=== PATIENT | female | born 1950 | race Caucasian/White ===

== ENCOUNTER → 2017-05-24 | Outpatient (CLI) | payer MEDICARE, OTHER ==
[~2017-05-24] MED LIST: ALLEGRA ALLERG180 MG PO; APAP500 PO; ATORVASTATIN CA40 MG PO; BACTRIM DS TAB1 EACH PO; CEPHALEXIN 500500 M3 PO; CIPRO500 MG PO; ELIQUIS5 MG PO; FLONASE 0.05%50 MCG NASAL; HYDROCODON-ACE1 EACH PO; K-DUR10 MEQ PO; LOPRESSOR25 PO; OMEGA-31000 M1 PO; OXYCODONE HCL 55 MG PO; PANTOPRAZOLE SO40 M1 PO; PATADAY2.5 ML OP; PERCOCET 5-3251 EACH PO; PROAIR HFA8.5 GM INH; REMERON15 MG PO; RESTASIS1 EACH OP; RESTASIS1 EACH OPHTHALMIC; RESTORIL15 MG PO; SINGULAIR 10 MG10 M1 PO; UNICOMPLEX M TA1 TA1 PO; VENTOLIN HFA 1818 GM INH; XARELTO20 MG PO; ZANTAC 150MG T150 MG; ZOFRAN ODT4 MG PO; ZOLOFT50 MG PO
== END ==
LOC: M.ULTRA 10:57
DX: N18.3 Chronic kidney disease, stage 3 (moderate) (principal); N13.39 Other hydronephrosis; N32.89 Other specified disorders of bladder; M79.89 Other specified soft tissue disorders; M79.605 Pain in left leg

== ENCOUNTER 2017-06-27 20:35 | Emergency (ER) | payer MEDICARE, OTHER ==
[~2017-06-27] VITALS: Ht 154.9 cm; Wt 93.4 kg
[~2017-06-27 20:35] MED LIST changes: -LOPRESSOR25 PO; -OXYCODONE HCL 55 MG PO; -REMERON15 MG PO; -RESTORIL15 MG PO; -XARELTO20 MG PO; -ZANTAC 150MG T150 MG; -ZOFRAN ODT4 MG PO
[2017-06-27] MEDS ORDERED: ZANTAC 150MG T150 MG (20:43)
[2017-06-27 20:57] LABS: ABSOLUTE EOSINOPHILS 0.2 thou/uL (0.0-0.7); ABSOLUTE LYMPHOCYTES 2.9 thou/uL (0.8-5.3); ABSOLUTE MONOCYTES 0.7 thou/uL (0.0-1.2); ABSOLUTE NEUTROPHILS 3.1 thou/uL (1.6-8.1); BASOPHILS 0.5 %; EOSINOPHILS 2.4 %; HEMATOCRIT 38.8 % (37.0-47.0); HEMOGLOBIN 13.3 gm/dL (12.0-15.0); LYMPHOCYTES 41.9 %; MCH 31.3 pg (26.0-34.0); MCHC 34.2 g/dL (28.0-37.0); MCV 91.6 fL (80.0-100.0); MONOCYTES 9.8 %; MPV 6.7 fl. (7.2-11.1); NUCLEATED RBCS 0 /100WBC; PLATELET COUNT* 254 thou/uL (150-400); POLYS 45.4 %; RBC 4.23 mil/uL (4.20-5.00); RDW-CV 12.8 % (10.5-14.5); WBC 6.9 thou/uL (4.0-11.0)
[2017-06-27 21:08] LABS: ANION GAP 12 mmol/L (7-16); BUN 9 mg/dL (7-18); CALCIUM 8.7 mg/dL (8.5-10.1); CHLORIDE 100 mmol/L (98-107); CO2 24 mmol/L (21-32); CREATININE 0.7 mg/dL (0.6-1.3); GLUCOSE 102 mg/dL (70-99); SODIUM 136 mmol/L (136-145)
[2017-06-27 21:17] LABS: ALBUMIN 3.6 g/dL (3.4-5.0); ALKALINE PHOSPHATASE 113 U/L (46-116); LIPASE 97 U/L (73-393); NT-PRO BRAIN NAT PEPTIDE 110 pg/mL (<300); SGOT 19 U/L (15-37); SGPT 31 U/L (30-65); TOTAL BILIRUBIN 0.2 mg/dL (<0.1-1.0); TOTAL PROTEIN 6.8 g/dL (6.4-8.2); TROPONIN-I LEVEL <0.06 ng/mL (<0.06)
[2017-06-27 22:43] LABS: URINE BILIRUBIN NEGATIVE (Negative); URINE BLOOD 1+ (Negative); URINE CLARITY CLEAR; URINE COLOR YELLOW; URINE GLUCOSE-RANDOM NEGATIVE (Negative); URINE KETONES NEGATIVE (Negative); URINE LEUKOCYTES-REFLEX TRACE (Negative); URINE NITRITE-REFLEX NEGATIVE (Negative); URINE PROTEIN NEGATIVE (Negative); URINE SPECIFIC GRAVITY <= 1.005 (1.005-1.030); URINE UROBILINOGEN 0.2 E.U./dl (0.2-1.0)
[2017-06-27 22:56] LABS: CASTS None Seen /LPF (None Seen); CRYSTALS None Seen /LPF (None Seen); MUCUS None Seen strn/LPF (None Seen); SQUAMOUS 0-3 Few /LPF (0-3); URINE RBC 0-2 Rare /HPF (0-2); URINE WBC-REFLEX 0-5 Rare /HPF (0-5)
[2017-06-27 22:57] LABS: BACTERIA-REFLEX None Seen /HPF (None Seen)
[2017-06-27] MEDS ORDERED: ZOFRAN ODT4 MG PO (23:57)
[2017-06-27] MEDS ORDERED: RESTORIL15 MG PO (23:57)
[2017-06-28 00:12] VITALS: BP 134/71
--- NOTE | 2017-06-28 17:47 | EKG ---
[place] [address] ELECTROCARDIOGRAM REPORT Name: LATOYA GUTIERRES [id number] Admission: 06/27/17 Attend Phys: Discharge: 06/28/17 Date of : 46 Report #: [id number] THIS REPORT FOR: //name// [facility] ED Test Date: 2017-06-27 Test Time: 20:40:42 Pat Name: LATOYA GUTIERRES Department: Room: Gender: F Foreclosure Specialist: ZUNILDA : 1950 Requested By: Sue Roberts Order Number: [id number] : Rigoberto Davis Measurements Intervals [place] Rate: 69 P: -59 [place]: 154 QRS: -37 QRSD: 93 T: 57 QT: 398 QTc: 427 Interpretive Statements atrially paced rhythm Left axis deviation Low voltage, precordial leads Compared to ECG 07/16/2016 12 atrial pacing persists Electronically Signed On 06-28-2017 17:46:58 CDT by Rigoberto Davis [email or web address] <ELECTRONICALLY SIGNED> By: Rigoberto Davis MD, [facility] 06/28/17 1746 39 39 Rigoberto Davis MD, FACC /EPI
== END 2017-06-28 00:13 | disposition home or self-care (01) ==
LOC: M.ERS 20:35
PROVIDERS: Emergency Medicine
DX: R07.89 Other chest pain (principal); F32.9 Major depressive disorder, single episode, unspecified; G47.00 Insomnia, unspecified; I48.91 Unspecified atrial fibrillation; J45.909 Unspecified asthma, uncomplicated; K21.9 Gastro-esophageal reflux disease without esophagitis; F41.9 Anxiety disorder, unspecified; Z88.5 Allergy status to narcotic agent; Z88.8 Allergy status to other drugs, medicaments and biological substances; Z91.041 Radiographic dye allergy status

== ENCOUNTER 2017-08-17 16:52 | Inpatient (IN) | payer MEDICARE ==
[~2017-08-17] VITALS: Ht 154.9 cm; Wt 98.9 kg
[~2017-08-17 16:52] MED LIST changes: +RESTORIL15 MG PO; +ZANTAC 150MG T150 MG; +ZOFRAN ODT4 MG PO
[2017-08-17 16:54] VITALS: BP 152/65
[2017-08-17 17:42] LABS: ABSOLUTE EOSINOPHILS 0.2 thou/uL (0.0-0.7); ABSOLUTE LYMPHOCYTES 2.9 thou/uL (0.8-5.3); ABSOLUTE MONOCYTES 0.6 thou/uL (0.0-1.2); ABSOLUTE NEUTROPHILS 2.3 thou/uL (1.6-8.1); BASOPHILS 0.7 %; EOSINOPHILS 3.7 %; HEMATOCRIT 38.6 % (37.0-47.0); MCH 31.3 pg (26.0-34.0); MCHC 33.7 g/dL (28.0-37.0); MCV 92.6 fL (80.0-100.0); MONOCYTES 9.6 %; MPV 6.7 fl. (7.2-11.1); NUCLEATED RBCS 0 /100WBC; PLATELET COUNT* 237 thou/uL (150-400); RBC 4.17 mil/uL (4.20-5.00); RDW-CV 12.9 % (10.5-14.5); WBC 5.9 thou/uL (4.0-11.0)
[2017-08-17 17:51] LABS: CALCIUM 8.4 mg/dL (8.5-10.1); CREATININE 0.7 mg/dL (0.6-1.3)
[2017-08-17 17:52] LABS: APTT 32.3 Seconds (25.0-31.3)
[2017-08-17 18:09] LABS: ALBUMIN 3.5 g/dL (3.4-5.0); CK-MB MASS 1.1 ng/mL (<0.5-3.6); MAGNESIUM 1.8 mg/dL (1.8-2.4); TOTAL BILIRUBIN 0.2 mg/dL (<0.1-1.0); TOTAL PROTEIN 6.8 g/dL (6.4-8.2); TROPONIN-I LEVEL 0.22 ng/mL (<0.06)
[2017-08-17 20:00] VITALS: BP 125/58; BP 154/69
[2017-08-17] MEDS ORDERED: XARELTO20 MG PO (23:36)
[2017-08-17] MEDS ORDERED: OXYCODONE HCL 55 MG PO (23:36)
[2017-08-17] MEDS ORDERED: REMERON15 MG PO (23:36)
[2017-08-18] VITALS (17 sets, daily range): BP systolic 110–188; BP diastolic 60–98
[2017-08-18 04:44] LABS: HEMOGLOBIN 12.7 gm/dL (12.0-15.0); MCH 31.2 pg (26.0-34.0); MCHC 34.3 g/dL (28.0-37.0); MPV 7.2 fl. (7.2-11.1); RBC 4.06 mil/uL (4.20-5.00); RDW-CV 12.9 % (10.5-14.5); WBC 5.4 thou/uL (4.0-11.0)
[2017-08-18 05:24] LABS: ALBUMIN 3.2 g/dL (3.4-5.0); CALCIUM 8.5 mg/dL (8.5-10.1); CREATININE 0.7 mg/dL (0.6-1.3); MAGNESIUM 1.9 mg/dL (1.8-2.4); POTASSIUM 3.9 mmol/L (3.5-5.1); TOTAL BILIRUBIN 0.2 mg/dL (<0.1-1.0); TOTAL PROTEIN 5.8 g/dL (6.4-8.2)
--- NOTE | 2017-08-18 08:05 | NUR ---
NEW ADMIT THIS SHIFT REFER TO ASSESSMENT WITHOUT S/SX OF ACUTE DISTRESS REPORTS CHRONIC BACK PAIN INTERVENTION EFFECTIVE FOR MANAGMENT OF SX MEDICATION LIST RECONCILED WITH PATIENT UPDATED T.Rasheed KIRBY DOCUMENTED REGARDING HOME REGIMEN SMALL PILL BOX SENT TO PHARMACY WITH BRENDEN JETER AFTER MIDNIGHT ORDERED REPORT GIVEN TO ONCOMING RN
--- NOTE | 2017-08-18 09:36 | EKG ---
[place] [address] ELECTROCARDIOGRAM REPORT Name: LATOYA GUTIERRES Room: [address] ADM IN .R.#: [id number] Admission: 08/17/17 Attend Phys: Leanne Bo MD Discharge: Date of : 46 Report #: [id number] THIS REPORT FOR: //name// [facility] ED Test Date: 2017-08-17 Test Time: 16:59:53 Pat Name: LATOYA GUTIERRES Department: Room: [address] Gender: F Title Curator: AJ : 1950 Requested By: Del Muhammad Order Number: [id number] Reading MD: Lamine Lindsey Measurements Intervals [place] Rate: 70 P: 105 [place]: 154 QRS: 86 QRSD: 112 T: -7 QT: 408 QTc: 441 Interpretive Statements Atrial pacing with first-degree AV block Low voltage, precordial leads Minimal ST depression, inferior leads Compared to ECG 06/27/2017 20:40:42 ST (T wave) deviation now present Left-axis deviation no longer present Electronically Signed On 08-18-2017 9:36:32 CDT by Lamine Lindsey [email or web address] <ELECTRONICALLY SIGNED> By: Lamine Lindsey MD, [facility] 08/18/17 0936 1659 1659 Lamine Lindsey MD, [facility] /EPI
--- NOTE | 2017-08-18 09:41 | EKG ---
[place] [address] ELECTROCARDIOGRAM REPORT Name: LATOYA GUTIERRES Room: [address] IN [facility]#: [id number] Admission: 08/17/17 Attend Phys: Leanne Bo MD Discharge: Date of : 46 Report #: [id number] THIS REPORT FOR: //name// [facility] Test Date: 2017-08-17 Test Time: 23:57:42 Pat Name: LATOYA GUTIERRES Department: Room: Gender: F Trailer Tank Truck Driver: : 1950 Requested By: Del Muhammad Order Number: [id number] MD: Lamine Lindsey Measurements Intervals [place] Rate: 64 P: -71 [place]: 285 QRS: -34 QRSD: 94 T: 45 QT: 430 QTc: 444 Interpretive Statements Atrial-paced complexes Prolonged MT interval Left axis deviation Low voltage, precordial leads Borderline T abnormalities, anterior leads Compared to ECG 06/27/2017 20:40:42 First degree AV block now present T-wave abnormality now present Ventricular-paced complex(es) or rhythm no longer present Electronically Signed On 08-18-2017 9:41:23 CDT by Lamine Lindsey [email or web address] <ELECTRONICALLY SIGNED> By: Lamine Lindsey MD, FACC 08/18/17 0941 2357 2357 Lamine Lindsey MD, FAC /EPI
--- NOTE | 2017-08-18 09:42 | EKG ---
[place] [address] ELECTROCARDIOGRAM REPORT Name: LATOYA GUTIERRES Room: [address] ADM IN .R.#: [id number] Admission: 08/17/17 Attend Phys: Leanne Bo MD Discharge: Date of : 46 Report #: [id number] THIS REPORT FOR: //name// [facility] Test Date: 2017-08-18 Test Time: 06:03:38 Pat Name: LATOYA GUTIERRES Department: Room: [address] Gender: F Philosophy And Religion Instructor: : 1950 Requested By: Del Muhammad Order Number: [id number] Reading MD: Lamine Lindsey Measurements Intervals [place] Rate: 65 P: [place]: 175 QRS: -18 QRSD: 94 T: 40 QT: 426 QTc: 443 Interpretive Statements Atrial-paced complexes Borderline left axis deviation Low voltage, throughout Borderline T abnormalities, anterior leads Compared to ECG 06/27/2017 20:40:42 No significant changes noted Electronically Signed On 08-18-2017 9:42:06 CDT by Lamine Lindsey [email or web address] <ELECTRONICALLY SIGNED> By: Lamine Lindsey MD, [facility] 08/18/17 0942 2 2 Lamine Lindsey MD, [facility] /EPI
--- NOTE | 2017-08-18 11:08 | NUR ---
PT OFF UNIT TO CATH LAD.
--- NOTE | 2017-08-18 12:09 | CON ---
[address] [address] CONSULTATION Name: LATOYA GUTIERRES Room: [address] IN .R.#: [id number] Admission: 08/17/17 Attend Phys: Leanne Bo MD Discharge: Date of : 46 Report #: [id number] THIS REPORT FOR: //name// CC: Dr. Darlene Michael MD CARDIOLOGY CONSULTATION INDICATION: Hvr-VK-xutgktlqn myocardial infarction. HISTORY OF PRESENT ILLNESS: The patient is a 66-year-old white female who reports cardiac catheterization in 2003, at which point, no intervention was undertaken. Risk factors include dyslipidemia, hypertension and family history of coronary artery disease. She presented to the hospital yesterday with complaints of palpitations and numbness and tingling in bilateral hands and fingers. She was without complaints of specific chest pain, although she has noted shoulder pain for the last couple of weeks that she describes as more musculoskeletal. She attributed her symptoms to taking some potassium iodide for allergies. Thus far, on telemetry monitoring, we have not seen significant dysrhythmia. Her EKG shows a sinus rhythm, without significant ST or T-wave abnormality. Her troponin was 0.22 on 3 separate occasions. PAST MEDICAL HISTORY: 1. Paroxysmal atrial fibrillation. 2. Status post dual-chamber pacemaker placement for presumed sick sinus syndrome. 3. Hyperlipidemia. 4. GERD. 5. Asthma. PAST SURGICAL HISTORY: Tonsillectomy and adenoidectomy, 1954; oral surgery, 1963; D and C, 1977 and 2011; colonoscopy, 1998, 2015 and 2016; bunionectomy, 2005; tendon release, 2010; knee replacement in 2007; multiple EGDs and cardiac catheterization in 2003. FAMILY HISTORY: The patient's mother, father and sisters have had heart disease. SOCIAL HISTORY: The patient is . She is retired. She drinks 2-3 ounces of alcohol weekly. She does not smoke. ALLERGIES: MULTIPLE INCLUDING INTOLERANCES TO CIPRO, HYDROCODONE, DIAMOX, YELLOW DYE, BLUE DYE, CLARITIN AND ZYRTEC. REVIEW OF SYSTEMS: A 14-point review of systems [place] [address] CONSULTATION Name: LATOYA GUTIERRES Room: [address]#: [id number] Admission: 08/17/17 Attend Phys: Leanne Bo MD Discharge: Date of : 46 Report #: [id number] productive of clear sputum, palpitations, dyspnea, orthopnea, syncope and edema. The patient reports ulcers in 1991. The patient has seasonal and medical allergies. The patient has arthritis. She reports a lens implant for vision. She has decreased hearing and wears dentures. Otherwise, 14-point review of systems was unremarkable. PHYSICAL EXAMINATION: VITAL SIGNS: Stable. Blood pressure 151/77, pulse 59 and regular presently. GENERAL: This is a moderately obese, pleasant white female in no distress. Mood and affect appropriate. HEENT: Extraocular muscles intact. Mucous membranes are moist. NECK: Examination of the neck shows no jugular venous distention. I do not appreciate any carotid bruits. CHEST: Examination of the chest reveals clear lung hassan, without wheezes or rales. CARDIAC EXAMINATION: Reveals a regular rhythm with normal S1 and S2. I do not appreciate gallop or murmur. ABDOMEN: Examination of the abdomen reveals normal bowel sounds. The abdomen is soft and nontender. EXTREMITIES: Examination of the extremities shows no edema. Peripheral pulses are 2+ and easily palpable. SKIN: Warm and dry. LABORATORY DATA: A 12-lead EKG shows an atrially paced rhythm with first-degree AV block. There is nonspecific T-wave flattening. There is low voltage. Labs are reviewed. Electrolytes are within normal limits. BUN 12, creatinine 0.7 and serum glucose 88. LFTs within normal limits. Troponin 0.22 on 3 separate occasions. CBC unremarkable. Chest x-ray shows no acute cardiopulmonary abnormality. The patient has severe dextrocurvature of the thoracic spine. HOME MEDICATIONS: Tylenol q. 4 hours p.r.n., albuterol 1-2 puffs q. 4 hours p.r.n., atorvastatin 40 mg daily, cyclosporine eyedrops b.i.d., Kady 180 mg daily, fluticasone nasal spray daily, Remeron 50 mg at bedtime, Singulair 10 mg daily, Pataday eyedrops 2.5 mL daily, fish oil 1000 mg 2 tablets daily, Zofran 1 tablet q. 6 hours p.r.n., oxycodone IR 5 mg q. 6 hours p.r.n., Protonix 40 mg daily, Zantac 150 mg daily, Xarelto 20 mg at bedtime and sertraline 100 mg daily. IMPRESSION AND RECOMMENDATIONS: 1. Yxv-BK-kogzhbtlh myocardial infarction. We will proceed with left heart catheterization and possible intervention as deemed necessary. 2. Paroxysmal atrial fibrillation. The patient is presently on Xarelto. If she undergoes intervention, may hold the next dose of Xarelto. We will [facility] [address] [place] [address] CONSULTATION Name: LATOYA GUTIERRES Room: [facility] IN [facility]#: [id number] Admission: 08/17/17 Attend Phys: Leanne Bo MD Discharge: Date of : 46 Report #: [id number] otherwise continue indefinitely. Rate appears well controlled as she is atrially paced. 3. Status post dual-chamber pacemaker for probable sick sinus syndrome, appears to be functioning normally. 4. The patient reports a remote history of hypertension. Blood pressure adequately controlled presently. 5. Hyperlipidemia. Continue atorvastatin at current dose. 6. Palpitations. No indication of dysrhythmia on tele monitoring at this point in time. We will follow. <ELECTRONICALLY SIGNED> By: Lamine Lindsey MD, FACC 08/18/17 1209 1033 1114Micmaurice Lindsey MD, FACC /nt
--- NOTE | 2017-08-18 12:24 | NUR ---
PT RETURN FROM CHOIR LEADER, RIGHT GROIN CDI WITH NO HEMATOMA, PEDAL PULSES ARE PALPABLE. WILL CONTINUE TO ASSESS.
--- NOTE | 2017-08-18 18:54 | NUR ---
PT WITH REPORTED NEGATIVE CATH THIS SHIFT. PT GROIN REMAINS CDI WITH NO HEMATOMA. PT WAS ABLE TO SIT UP IN CHAIR FOR DINNER WHEN OFF BED REST. WILL CONTINUE TO ASSESS.
--- NOTE | 2017-08-18 19:25 | NUR ---
BEDISDE REPORT COMPLETED WITH VINH BASHIR. ASSESSED RIGHT FROIN WITH NIGHT KRYSTEN JUSTICE NO HEMATOMA NOTED AND DRESSING CDI.
[2017-08-19] VITALS: BP 140/78
[2017-08-19 04:00] VITALS: BP 120/57
[2017-08-19 04:54] LABS: HEMOGLOBIN 13.4 gm/dL (12.0-15.0); MCH 30.8 pg (26.0-34.0); MCHC 33.4 g/dL (28.0-37.0); MCV 92.3 fL (80.0-100.0); MPV 7.3 fl. (7.2-11.1); RBC 4.33 mil/uL (4.20-5.00); RDW-CV 13.4 % (10.5-14.5); WBC 4.9 thou/uL (4.0-11.0)
[2017-08-19 05:09] LABS: CALCIUM 9.1 mg/dL (8.5-10.1); CREATININE 0.6 mg/dL (0.6-1.3); POTASSIUM 3.7 mmol/L (3.5-5.1); TROPONIN-I LEVEL 0.23 ng/mL (<0.06)
--- NOTE | 2017-08-19 05:26 | NUR ---
ASSUMED CARE OF PT AT 1900, PT ALERT AND ORIENTED X4. VS AND ASSESSMENT STABLE. PT RUNNING NSR ON THE MONITOR. POST CATH SITE CHECKS BENIGN. PT DENIED ANY COMPLAINTS AND SLEPT THROUGH THE NIGHT. WILL CONTINUE PLAN OF CARE.
[2017-08-19 08:37] VITALS: BP 141/82
--- NOTE | 2017-08-19 08:40 | NUR ---
PT RESTING IN BED, APPEARS ALERT O X 4, DENIES CHEST PAIN, SOB, PAIN OR DISCOMFORT, R GROIN CATH SITE APPEARS SOFT AND INTACT, WITHOUT EVIDENCE OF BLEEDING, PT UP TO BATHROOM, APPEARS STEADY
--- NOTE | 2017-08-19 09:06 | CARD ---
[address] [address] CARDIAC CATH REPORT Name: SHARIF GUTIERRESChin De La Rosa Room: [facility] IN .R.#: [id number] Admission: 08/17/17 Attend Phys: Leanne Bo MD Discharge: Date of : 46 Report #: [id number] THIS REPORT FOR: //name// APPROVED REPORT Study performed: 08/18/2017 10:46:02 Patient Details Patient Status: In-Patient Room #: 208 The patient is a 66 year-old female Event Personnel Lamine Lindsey Sales And Marketing Assistant, Apple Moore, Lori Gong Evinger, Makenzie RN RN, Kathrine Peterson RN set designer Performed Art Access - R femoral artery* Left Heart Cath w/LT VGram [id number] LHCLV Procedure Narrative The patient was brought urgently to the Cardiac Catheterization Laboratory and was prepped and draped in a sterile manner. The right femoral was infiltrated with 2% Lidocaine subcutaneous anesthesia. A [place] 6 FR sheath was inserted into the right femoral artery. Coronary angiography was performed using coronary diagnostic catheters. The right coronary system was accessed and visualized with a Diagnostic catheter. The left coronary system was accessed and visualized with a Diagnostic catheter. The left ventricle was accessed and visualized with a Diagnostic catheter. Left ventricular/Aortic Valve gradient assessed via catheter pullback. The patient tolerated the procedure well and there were no complications associated with the procedure. There was no hematoma. Intraoperative Conscious Sedation Sedation start time: 1119 Case end Time: 1139 Fentanyl --25 mcg Versed --1 mg Fluoro Time: 3.0 minutes Dose: 1132 mGy Contrast Type and Amount: Visipaque 110 ml Coronary Angiography The patient's coronary [place] [address] CARDIAC CATH REPORT Name: LATOYA GUTIERRES Room: [address] IN [facility]#: [id number] Admission: 08/17/17 Attend Phys: Leanne Bo MD Discharge: Date of : 46 Report #: [id number] Diagnostic Cath Left Main Normal. LAD Normal in its proximal mid and distal portions. Diagonal 1 Normal. Diagonal 2 Normal. Circumflex Normal in its proximal mid and distal portions. OM1 Normal margin branch. Right Coronary 10% plaque proximally. The mid and distal portions are normal. R PDA Normal. RPLV Normal. Ramus Normal. Hemodynamics The aortic pressure is 139/69 mmHg with a mean of 81 mmHg. The left ventricular pressure is 139/8 mmHg with a mean of mmHg. The left ventricular end diastolic pressure is 19 mmHg. There was no gradient across the aortic valve upon pullback. Conclusion 1. Minimal atherosclerotic coronary artery disease with 10% plaquing in the right coronary artery. 2. Normal left ventricular systolic function. 3. Normal left ventricular end-diastolic pressure. Recommendations 1. Continue aggressive risk factor modification and medical management. <ELECTRONICALLY SIGNED> By: Lamine Lindsey MD, FACC 08/19/17905 5 5Michaereji Lindsey MD, FACC /INF
--- NOTE | 2017-08-19 09:49 | NUR ---
PT DID NOT TAKE AM XARALTO, STATES TAKES DAILY AT 5 PM AT HOME, REC DOSE AT 1700 YESTERDAY, PLAN ON D/C THIS AM, WILL TAKE WHEN GETS HOME
[2017-08-19 12:00] VITALS: BP 134/79
[2017-08-19 12:50] VITALS: BP 141/82
[2017-08-19] MEDS ORDERED: LOPRESSOR25 PO (13:14)
[2017-08-19 14:03] VITALS: BP 141/82
== END 2017-08-19 13:58 | disposition home or self-care (01) | DRG 281 ==
LOC: M.ERS 16:52 → M.TBA-ER 18:28 → M.2W 18:28
PROVIDERS: Family Medicine; ADMIT Internal Medicine
PROC: 4A023N7 Measurement of Cardiac Sampling and Pressure, Left Heart, Percutaneous Approach (ICD-10-PCS; principal; 2017-08-19)
PROC: B2111ZZ Fluoroscopy of Multiple Coronary Arteries using Low Osmolar Contrast (ICD-10-PCS; principal; 2017-08-19)
PROC: B2151ZZ Fluoroscopy of Left Heart using Low Osmolar Contrast (ICD-10-PCS; principal; 2017-08-19)
DX: I21.4 Non-ST elevation (NSTEMI) myocardial infarction (principal); I50.32 Chronic diastolic (congestive) heart failure; Z68.41 Body mass index [BMI] 40.0-44.9, adult; I48.0 Paroxysmal atrial fibrillation; E66.01 Morbid (severe) obesity due to excess calories; F41.9 Anxiety disorder, unspecified; E78.5 Hyperlipidemia, unspecified; I10 Essential (primary) hypertension; J45.909 Unspecified asthma, uncomplicated; K21.9 Gastro-esophageal reflux disease without esophagitis; I25.10 Atherosclerotic heart disease of native coronary artery without angina pectoris; Z88.8 Allergy status to other drugs, medicaments and biological substances; Z79.01 Long term (current) use of anticoagulants; Z88.6 Allergy status to analgesic agent; Z88.1 Allergy status to other antibiotic agents; Z95.0 Presence of cardiac pacemaker; Z79.899 Other long term (current) drug therapy; Z91.041 Radiographic dye allergy status; Z98.890 Other specified postprocedural states; Z82.49 Family history of ischemic heart disease and other diseases of the circulatory system

== ENCOUNTER 2018-05-14 13:31 | Inpatient (IN) | payer MEDICARE, OTHER ==
[~2018-05-14] VITALS: Ht 154.9 cm; Wt 111.1 kg
[~2018-05-14 13:31] MED LIST changes: +LOPRESSOR25 PO; +OXYCODONE HCL 55 MG PO; +REMERON15 MG PO; +XARELTO20 MG PO
[2018-05-14 13:43] VITALS: BP 188/82
[2018-05-14] MEDS ORDERED: INHALER (13:50)
[2018-05-14] MEDS ORDERED: [UNRECOGNIZED DRUG - OTHER] (13:50)
[2018-05-14 14:12] LABS: ABSOLUTE EOSINOPHILS 0.5 thou/uL (0.0-0.7); ABSOLUTE LYMPHOCYTES 0.8 thou/uL (0.8-5.3); ABSOLUTE MONOCYTES 0.2 thou/uL (0.0-1.2); ABSOLUTE NEUTROPHILS 5.4 thou/uL (1.6-8.1); BASOPHILS 0.5 %; EOSINOPHILS 6.9 %; HEMATOCRIT 39.9 % (37.0-47.0); HEMOGLOBIN 13.4 gm/dL (12.0-15.0); LYMPHOCYTES 11.1 %; MCH 30.4 pg (26.0-34.0); MCHC 33.7 g/dL (28.0-37.0); MCV 90.3 fL (80.0-100.0); MONOCYTES 2.8 %; MPV 6.9 fl. (7.2-11.1); NUCLEATED RBCS 0 /100WBC; PLATELET COUNT* 260 thou/uL (150-400); POLYS 78.7 %; RBC 4.41 mil/uL (4.20-5.00); RDW-CV 13.4 % (10.5-14.5); WBC 6.8 thou/uL (4.0-11.0)
[2018-05-14 14:25] LABS: APTT 31.3 Seconds (25.0-31.3)
[2018-05-14 14:28] LABS: ANION GAP 8 mmol/L (7-16); BUN 8 mg/dL (7-18); CALCIUM 8.6 mg/dL (8.5-10.1); CHLORIDE 100 mmol/L (98-107); CO2 25 mmol/L (21-32); GLUCOSE 138 mg/dL (70-99); POTASSIUM 4.1 mmol/L (3.5-5.1); SODIUM 133 mmol/L (136-145); TROPONIN-I LEVEL <0.06 ng/mL (<0.06)
[2018-05-14 14:36] LABS: ALBUMIN 3.3 g/dL (3.4-5.0); ALKALINE PHOSPHATASE 126 U/L (46-116); NT-PRO BRAIN NAT PEPTIDE 116 pg/mL (<300); SGOT 22 U/L (15-37); SGPT 31 U/L (30-65); TOTAL BILIRUBIN 0.2 mg/dL (<0.1-1.0); TOTAL PROTEIN 6.8 g/dL (6.4-8.2)
[2018-05-14 15:58] VITALS: BP 151/75
[2018-05-14 16:29] VITALS: BP 149/59
--- NOTE | 2018-05-14 17:49 | NUR ---
ASSESSMENT COMPLETE. PT ADMITTED WITH ASTHMA EXACERBATION AND BRONCHITIS. PT GIVEN IV ROCEPHIN AND SOLUMEDROL IN ED. PT IS CURRENTLY ON ROOM AIR AT 93%. VSS. PT AFEBRILE UPON ADMISSION TO THE FLOOR. PT IS ALERT AND ORIENTED. DENIES PAIN AND N/V. UP AD AMIRA. IV SALINE LOCKED. PT HAS NO OTHER CONCERNS AT THIS TIME. SEE ASSESSMENT AND VITALS FOR OTHER DETAILS. CALL LIGHT WITHIN REACH, WILL CONTINUE PLAN OF CARE
[2018-05-14 20:00] VITALS: BP 154/74
--- NOTE | 2018-05-15 05:43 | NUR ---
ASSUMED CARE OF PT AT 1900 PT ALERT AND ORIENTED X4 VS AND ASSESSMNET STABLE PT HAD TYLENOL ONCE AND THEN SLEPT THROUGH THE NIGHT. WILL COTINUE PLAN OF CARE.
[2018-05-15 07:19] VITALS: BP 145/70
--- NOTE | 2018-05-15 13:57 | NUR ---
INITIAL ASSESSMENT: Pt evaluated for d/c planning needs. Reviewed chart and spoke with nurse, pt and spouse. Pt is alert and oriented. Pt lives in house with spouse and was independent with ADL's prior to admission to the hospital. Pt has walker, cane and nebulizer at home. Pt does not currently have home 02. Pt had home health after knee surgery in 2007. Pt plans on returning home on d/c from hospital. Will remain available to assist as needed.
--- NOTE | 2018-05-15 15:17 | NUR ---
ASSESSMENT COMPLETE. PT ALERT AND ORIENTED X4. PT REPORTS SOME IMPROVEMENT TODAY. PT GIVEN IV ROCEPHIN AND SOLUMEDROL. PT REPORTS BACK PAIN, EXTRA STENGTH TYLENOL GIVEN. IV SALINE LOCKED. PT IS UP AD AMIRA. SEE ASSESSMENT AND VITALS FOR OTHER DETAILS. CALL LIGHT WITHIN REACH, WILL CONTINUE PLAN OF CARE
--- NOTE | 2018-05-15 16:00 | EKG ---
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[place] : 1950 Requested By: Del Muhammad Order Number: [id number] MD: Rigoberto Davis Measurements Intervals [place] Rate: 70 P: -4 [place]: 190 QRS: -38 QRSD: 107 T: 67 QT: 399 QTc: 431 Interpretive Statements Sinus rhythm Left axis deviation Minimal ST depression Baseline wander in lead(s) V1,V2,V6 Compared to ECG 08/18/2017 06:03:38 ST (T wave) deviation now present Atrial-paced complex(es) or rhythm no longer present T-wave abnormality no longer present Electronically Signed On 05-15-2018 16:00:26 RN OTOLARYNGOLOGY by Rigoberto Davis [email or web address] <ELECTRONICALLY SIGNED> By: Rigoberto Davis MD, [facility] 05/15/18 1600 1402 1402 Rigoberto Davis MD, [facility] /EPI
[2018-05-15 16:20] VITALS: BP 145/61
[2018-05-15 20:00] VITALS: BP 140/87
--- NOTE | 2018-05-16 05:08 | NUR ---
ASSUMED PATIENT CARE AT 1900. PATIENT ALERT AND ORIENTED TIMES FOUR. COMPLAINTS OF PAIN NOTED. ORAL PAIN MEDICATION GIVEN. PATIENT STATES "I AM STILL SHORT OF AIR, ESPECIALLY WHEN I WAS TAKING A SHOWER" O2 SAT 97% ON ROOM AIR. IT WEB DEVELOPMENT CONSULTANT AND HOURLY ROUNDING COMPLETED CHARTED.
--- NOTE | 2018-05-16 07:03 | NUR ---
PT ON HOME UNIT WITH ROOM AIR.
[2018-05-16 10:00] VITALS: BP 152/71
[2018-05-16] MEDS ORDERED: AUGMENTIN 875-1 EACH PO (13:32)
[2018-05-16] MEDS ORDERED: PREDNISONE 10 M10 MG PO (13:38)
[2018-05-16] MEDS ORDERED: ALBUTEROL2.5 MG/31 INH (13:39)
[2018-05-16 13:49] VITALS: BP 152/71
[2018-05-16 14:56] VITALS: BP 152/71
--- NOTE | 2018-05-16 15:16 | NUR ---
PATIENT HAS BEEN ALERT AND ORIENTED TODAY VERY PLEASANT. UP AD AMIRA IN ROOM, SOME COMPLAINTS OF PAIN THAT IS CONTROLLED WITH ORAL PAIN MEDICATIONS. VITAL SIGNS STABLE ON ROOM AIR. PATIENT IS BEING DISCHARGE TO HOME. PRESCRIPTION AND DISCHARGE INSTRUCTIONS GIVEN QUESTIONS ANSWERED FOR PATIENT. LEFT VIA WHEEL CHAIR TO HOME.
== END 2018-05-16 14:56 | disposition home or self-care (01) | DRG 189 ==
LOC: M.ERS 13:31 → M.3W 15:09 → M.TBA-ER 15:09 → M.3W 16:12
PROVIDERS: Family Medicine; ADMIT Internal Medicine
DX: J96.20 Acute and chronic respiratory failure, unspecified whether with hypoxia or hypercapnia (principal); J45.901 Unspecified asthma with (acute) exacerbation; Z68.42 Body mass index [BMI] 45.0-49.9, adult; E66.9 Obesity, unspecified; J06.9 Acute upper respiratory infection, unspecified; I48.91 Unspecified atrial fibrillation; F41.9 Anxiety disorder, unspecified; K21.9 Gastro-esophageal reflux disease without esophagitis; G47.33 Obstructive sleep apnea (adult) (pediatric); Z96.652 Presence of left artificial knee joint; J30.9 Allergic rhinitis, unspecified; G89.29 Other chronic pain; M54.5 Low back pain; Z95.0 Presence of cardiac pacemaker; Z82.5 Family history of asthma and other chronic lower respiratory diseases; Z88.6 Allergy status to analgesic agent; Z88.8 Allergy status to other drugs, medicaments and biological substances; Z79.899 Other long term (current) drug therapy